=== PATIENT | female | born 1950 | race Caucasian/White ===

== ENCOUNTER 2022-09-20 07:54 | Day surgery (SDC) | payer MEDICARE, BC ==
[2022-09-20] VITALS (12 sets, daily range): BP systolic 98–125; BP diastolic 48–76
[~2022-09-20] VITALS: Ht 157.5 cm; Wt 67.9 kg
[2022-09-20] MEDS ORDERED: HYDR-3686 PO (08:43)
[2022-09-20] MEDS ORDERED: METO-411 PO (08:43)
[2022-09-20] MEDS ORDERED: PRAV80TA3 PO (08:43)
[2022-09-20] MEDS ORDERED: APIX5TAB3 PO (08:43)
[2022-09-20] MEDS ORDERED: AMLO5TAB16 PO (08:43)
[2022-09-20] MEDS ORDERED: FAMO20TA8 PO (08:43)
[2022-09-20] MEDS ORDERED: GABA300C PO (08:43)
[2022-09-20] MEDS ORDERED: BUSP7.5T5 PO (08:43)
[2022-09-20] MEDS ORDERED: FLUT16SP26 NAS (08:43)
[2022-09-20] MEDS ORDERED: OCCUVITE PO (08:43)
[2022-09-20] MEDS ORDERED: LORA10TA7 PO (08:43)
[2022-09-20] MEDS ORDERED: FLEC100T2 PO (08:43)
[2022-09-20] MEDS ORDERED: LOSA50TA64 PO (08:43)
[2022-09-20] MEDS ORDERED: CALC-159 PO (08:43)
[2022-09-20] MEDS ORDERED: MIDAZolam 1mg/ml 10ml vial IV ONE (08:55)
[2022-09-20] MEDS ORDERED: normal saline 1000ml 1,000 ML IV SCH (08:55)
[2022-09-20] MEDS ORDERED: fentaNYL/PF 50MCG/1 ML 2ML syringe IV ONE (08:55)
[2022-09-20 09:41] LABS: BASOPHILS # (AUTO) 0.1 X10'3 (0-0.2); BASOPHILS % (AUTO) 0.9 % (0-1); EOSINOPHILS # (AUTO) 0.3 X10'3 (0-0.9); EOSINOPHILS % (AUTO) 4.1 % (0-6); HEMATOCRIT 41.1 % (35.0-45.0); HEMOGLOBIN 13.6 g/dl (12.0-16.0); LYMPHOCYTES # (AUTO) 1.3 X10'3 (1.1-4.8); LYMPHOCYTES % (AUTO) 17.4 % (21-51); MEAN CORPUSCULAR HEMOGLOBIN 30.9 PG (27.0-31.0); MEAN CORPUSCULAR HGB CONC 33.1 g/dL (33.0-36.5); MEAN CORPUSCULAR VOLUME 93.2 FL (78-98); MEAN PLATELET VOLUME 9.3 FL (7.4-10.4); MONOCYTES # (AUTO) 0.8 X10'3 (0-0.9); MONOCYTES % (AUTO) 10.4 % (2-12); NEUTROPHILS # (AUTO) 4.9 X10'3 (1.8-7.7); NEUTROPHILS % (AUTO) 67.2 % (42-75); PLATELET COUNT 254 X10'3 (140-440); RED CELL DISTRIBUTION WIDTH 13.1 % (11.5-14.5); WHITE BLOOD COUNT 7.3 X10'3 (4.5-11.0)
[2022-09-20 09:50] LABS: ALBUMIN 3.9 G/DL (3.4-5.0); ANION GAP 8 (8-16); BLOOD UREA NITROGEN 19 MG/DL (7-18); BUN/CREATININE RATIO 19.6 (6.6-38.0); CALCIUM 8.9 MG/DL (8.5-10.1); CHLORIDE 104 MMOL/L (99-107); CREATININE 0.97 MG/DL (0.40-0.90); GLUCOSE 102 MG/DL (70-104); POTASSIUM 3.9 MMOL/L (3.5-5.1); SODIUM 138 MMOL/L (135-145); eGFR 56 ML/MIN
== END 2022-09-20 12:05 | disposition home or self-care (01) ==
LOC: SSTAY O 07:54
PROVIDERS: ATTEND Internal Medicine Cardiovascular Disease
DX: I48.20 Chronic atrial fibrillation, unspecified (principal); F41.0 Panic disorder [episodic paroxysmal anxiety]; I10 Essential (primary) hypertension; Z88.8 Allergy status to other drugs, medicaments and biological substances; Z88.1 Allergy status to other antibiotic agents; Z79.01 Long term (current) use of anticoagulants; Z79.899 Other long term (current) drug therapy; Z90.710 Acquired absence of both cervix and uterus; Z98.890 Other specified postprocedural states; Z98.41 Cataract extraction status, right eye; Z98.42 Cataract extraction status, left eye; Z87.891 Personal history of nicotine dependence
CPT/HCPCS: 36415; 80048; 83735; 85025; 85610; 92960; 93005; J2250; J3010; J7030; A4620